=== PATIENT | male | born 1955 | race Caucasian/White ===

== ENCOUNTER → 2019-10-30 15:38 | Outpatient (BNVA) | payer OTHER, SELFPAY | PROVIDERS: Referring Provider Dermatology; Visit Provider Dermatology | DX: L57.0 Actinic keratosis (principal); D48.9 Neoplasm of uncertain behavior, unspecified | CPT/HCPCS: 11102; 17000; 17003; 88304; 88305; 99203; 99204 ==

== ENCOUNTER → 2019-11-12 16:22 | Outpatient (BNVA) | payer OTHER, SELFPAY | PROVIDERS: Visit Provider Dermatology | DX: D03.9 Melanoma in situ, unspecified (principal); D48.9 Neoplasm of uncertain behavior, unspecified | CPT/HCPCS: 11602; 12032; 88304; 88305 ==

== ENCOUNTER → 2019-11-25 16:06 | Outpatient (BNVA) | payer OTHER, SELFPAY | PROVIDERS: Visit Provider Dermatology | DX: Z48.02 Encounter for removal of sutures (principal) | CPT/HCPCS: 99212 ==

== ENCOUNTER → 2019-12-05 13:50 | Outpatient (BNVA) | payer OTHER, SELFPAY | PROVIDERS: Visit Provider Dermatology | DX: Z48.89 Encounter for other specified surgical aftercare (principal) | CPT/HCPCS: 99213 ==

== ENCOUNTER → 2019-12-10 13:57 | Outpatient (BNVA) | payer OTHER, SELFPAY | PROVIDERS: Visit Provider Dermatology | DX: T81.30XA Disruption of wound, unspecified, initial encounter (principal); X58.XXXA Exposure to other specified factors, initial encounter; Z48.89 Encounter for other specified surgical aftercare | CPT/HCPCS: 99212 ==

== ENCOUNTER → 2025-02-20 11:32 | Outpatient (BNVA) | payer OTHER, SELFPAY | PROVIDERS: PCP Internal Medicine; Visit Provider Podiatrist Foot & Ankle Surgery | DX: M79.671 Pain in right foot (principal); G57.61 Lesion of plantar nerve, right lower limb | CPT/HCPCS: 73630 ==